=== PATIENT | male | born 1995 | race Two or more races ===

== ENCOUNTER 2023-06-12 12:37 | Emergency (ER) | payer OTHER ==
[~2023-06-12] VITALS: Ht 180.3 cm; Wt 105.4 kg
[2023-06-12 14:07] VITALS: BP 140/84; PULSE 99; RESP 16; TEMP 99.5; O2SAT 98
[2023-06-12 14:09] LABS: Basophils # (auto) 0 10 ^3/uL (0-0.2); Basophils % (auto) 0.3 % (0.0-2.0); Eosinophils # (auto) 0 10 ^3/uL (0-0.8); Eosinophils % (auto) 0.3 % (0.0-7.0); Hematocrit 49.1 % (41.0-53.0); Hemoglobin 16.9 g/dL (13.5-17.5); Lymphocytes # (auto) 0.8 10 ^3/uL (0.4-5.4); Lymphocytes % (auto) 7.9 % (10.0-50.0); Mean Corpuscular Hemoglobin 29.3 pg (28.0-32.0); Mean Corpuscular Hgb Conc. 34.4 g/dL (32.0-36.0); Mean Corpuscular Volume 85.3 fL (80.0-100.0); Monocytes # (auto) 0.8 10 ^3/uL (0-1.3); Monocytes % (auto) 7.6 % (0.0-12.0); Neutrophils # (auto) 8.6 10 ^3/uL (1.6-8.6); Neutrophils % (auto) 83.9 % (37.0-80.0); Nucleated Red Blood Cells % 0.1 %; Red Blood Cells 5.76 10^6/uL (4.5-5.90); Red Cell Distribution Width 13.1 % (11.8-14.3); White Blood Cell 10.3 10^3/uL (4.4-10.8)
[2023-06-12 14:27] LABS: Alanine Aminotransferase 24 U/L (7-40); Albumin 4.7 g/dL (3.2-4.8); Alkaline Phosphatase 73 U/L (46-116); Anion Gap 6 (5-15); Aspartate Aminotransferase 17 U/L (13-40); BUN/Creatinine Ratio 9.7 (10.0-20.0); Bilirubin, Total 1.2 mg/dL (0.2-1.0); Blood Urea Nitrogen 10 mg/dL (9-23); Calcium 9.8 mg/dL (8.5-10.1); Carbon Dioxide 27 mmol/L (20-30); Chloride 106 mmol/L (98-107); Glucose 106 mg/dL (74-106); Potassium 4.1 mmol/L (3.5-5.1); Sodium 139 mmol/L (136-145)
[2023-06-12 14:28] LABS: Total Protein 7.7 g/dL (5.7-8.2)
[2023-06-12] MEDS ORDERED: MAALOX PLUS or MAALOX 30 ML PO ONE (15:00)
[2023-06-12] MEDS ORDERED: LIDOCAINE VISCOUS 2% 15ML UD MT ONE (15:00)
[2023-06-12] MEDS ORDERED: FAMOTIDINE 20 MG TAB PO ONE (15:00)
[2023-06-12] MEDS ORDERED: DONNATAL 5ml ORAL Elix (BELLADONNA ALK-PHENOBARB) PO ONE (15:00)
[2023-06-12] MEDS ORDERED: LACTULOSE 20Gm/30ML SOLN PO ONE (16:00)
[2023-06-12] MEDS ORDERED: LACT10SO3 PO ×3 (16:00→16:01)
[2023-06-12] MEDS ORDERED: OMEP-434 PO (16:00)
== END 2023-06-12 16:11 | disposition home or self-care (01) ==
LOC: ER 12:37
DX: K21.9 Gastro-esophageal reflux disease without esophagitis (principal); K59.00 Constipation, unspecified; Z79.899 Other long term (current) drug therapy
CPT/HCPCS: 36415; 76705; 80053; 83690; 85025; 93005